=== PATIENT | male | born 1985 | race Caucasian/White ===

== ENCOUNTER 2025-06-16 08:00 | Emergency (ER) | payer SELFPAY ==
[2025-06-16 08:09] VITALS: BP 134/86
--- NOTE | 2025-06-16 09:21 | ED.GENMED ---
History of Present Illness
<ZANDRA Grayson Last Filed: 06/16/25 16:13>
General
Chief Complaint: Cough
Source: patient
Exam Limitations: none
Time Seen by Provider: 06/16/25 08:49
Nursing documentation reviewed up to this point in time: agreed with
History of Present Illness
History of Present Illness:
see MDM
Past History
<ZANDRA Grayson Last Filed: 06/16/25 16:13>
Past History
ED Past Medical History: HTN and Psychiatric (Anxiety, Panic attacks)
ED Past Surgical History: None
Social History
Tobacco: Former smoker
Alcohol: Occasional
Personal:
Living: with family
Review of Systems
<ZANDRA Grayson Last Filed: 06/16/25 16:13>
Review of Systems
Allergies reviewed?: Yes
All Other Systems: Not applicable
Phy Exam
<ZANDRA Grayson Last Filed: 06/16/25 16:13>
Physical Exam
Physical Exam:
GENERAL: Alert , in no apparent distress
EYE: pupils equal and reactive
NECK: Supple
ENT: b/l TM s clear, pharynx erythematous but no tonsillar hypertrophy or exudates
CARDIAC: Regular rate and rhythm, no edema
LUNGS: Crackles left upper lobe, no acute respiratory distress, no wheezes/rales/rhonchi, occ cough
ABDOMEN: Soft, without focal tenderness, no r/g, no cvat, normal bowel sounds
NEUROLOGICAL: Alert and oriented, no focal neuro deficits
SKIN: Warm and dry, skin intact. Mildly pale
MUSCULOSKELETAL: No edema, well perfused.
PSYCH: Normal and appropriate interaction.
Course
<ZANDRA Grayson Last Filed: 06/16/25 16:13>
Orders/Labs/Results
Orders:
Orders
06/16/25 09:14
0.9% Sodium Chloride 1000 ml [Nss] 1,000 ml IV BOLUS
CR Chest - 2 Views Urgent
Comment:
Reason For Exam: hemoptysis,. fever
06/16/25 09:34
Complete Blood Count/With Diff Urgent
Comprehensive Metabolic Panel Urgent
Blood Culture Q30M
RUDI Source: Blood/Venous
Specimen Description:
Blood Culture Q30M
RUDI Source: Blood/Venous
Specimen Description:
06/16/25 10:08
D-Dimer Urgent
Comment: ADD ON
PTT Urgent
Prothrombin Time Urgent
06/16/25 10:17
Add On- LAB Urgent
Tests Added?: d dimer
06/16/25 11:07
CT Chest PE Study Urgent
Comment:
Reason For Exam: hemoptysis, elevated D dimer;
06/16/25 11:38
Sputum Culture [Respiratory Culture/Gram Stain] Urgent
RUDI Source: Sputum
Specimen Description:
Date Specimen was Collected: 06/16/25
Time Specimen was Collected: 11:25
06/16/25 12:58
Legionella Urinary Antigen Urgent
RUDI Source: Urine
Specimen Description:
Strep pneumoniae Antigen Urgent
RUDI Source: Urine
Specimen Description:
06/16/25 13:00
Doxycycline [Vibramycin] 100 mg PO NOW STA
Abnormal Lab Results
06/16/25 06/16/25
09:34 10:08
RBC 4.52 L 10^6/uL
(4.70-6.10)
Absolute Lymphs (auto) 0.7 L 10^3/uL
(1.2-3.4)
Absolute Monos (auto) 0.9 H 10^3/uL
(0.1-0.6)
Lymphocytes % 11.3 L %
(20.5-51.1)
Monocytes % 14.3 H %
(1.7-9.3)
APTT 43.3 H Sec
(23.4-35.0)
D-Dimer 1.01 H ug/mlFEU
(0.00-0.50)
Sodium 133 L mmol/L
(135-145)
06/16/25 09:34
06/16/25 09:34
Vital Signs
Initial and Last Documented VS:
Initial Vital Signs
Temp Pulse Resp BP Pulse Ox
37.1 C 106 16 134/86 95
06/16/25 08:09 06/16/25 08:09 06/16/25 08:09 06/16/25 08:09 06/16/25 08:09
Last Documented Vital Signs
Temp Pulse Resp BP Pulse Ox
37.2 C 95 18 133/102 98
06/16/25 13:43 06/16/25 12:58 06/16/25 12:58 06/16/25 12:58 06/16/25 13:43
<Keven Rosenthal MD - Last Filed: 06/16/25 12:38>
Orders/Labs/Results
Orders:
Orders
06/16/25 09:14
0.9% Sodium Chloride 1000 ml [Nss] 1,000 ml IV BOLUS
CR Chest - 2 Views Urgent
Comment:
Reason For Exam: hemoptysis,. fever
06/16/25 09:34
Complete Blood Count/With Diff Urgent
Comprehensive Metabolic Panel Urgent
Blood Culture Q30M
RUDI Source: Blood/Venous
Specimen Description:
Blood Culture Q30M
RUDI Source: Blood/Venous
Specimen Description:
06/16/25 10:08
D-Dimer Urgent
Comment: ADD ON
PTT Urgent
Prothrombin Time Urgent
06/16/25 10:17
Add On- LAB Urgent
Tests Added?: d dimer
06/16/25 11:07
CT Chest PE Study Urgent
Comment:
Reason For Exam: hemoptysis, elevated D dimer;
06/16/25 11:38
Sputum Culture [Respiratory Culture/Gram Stain] Urgent
RUDI Source: Sputum
Specimen Description:
Date Specimen was Collected: 06/16/25
Time Specimen was Collected: :
06/16/25 12:58
Legionella Urinary Antigen Urgent
RUDI Source: Urine
Specimen Description:
Strep pneumoniae Antigen Urgent
RUDI Source: Urine
Specimen Description:
06/16/25 13:00
Doxycycline [Vibramycin] 100 mg PO NOW STA
Abnormal Lab Results
06/16/25 06/16/25
09:34 10:08
RBC 4.52 L 10^6/uL
(4.70-6.10)
Absolute Lymphs (auto) 0.7 L 10^3/uL
(1.2-3.4)
Absolute Monos (auto) 0.9 H 10^3/uL
(0.1-0.6)
Lymphocytes % 11.3 L %
(20.5-51.1)
Monocytes % 14.3 H %
(1.7-9.3)
APTT 43.3 H Sec
(23.4-35.0)
D-Dimer 1.01 H ug/mlFEU
(0.00-0.50)
Sodium 133 L mmol/L
(135-145)
06/16/25 09:34
06/16/25 09:34
Vital Signs
Initial and Last Documented VS:
Initial Vital Signs
Temp Pulse Resp BP Pulse Ox
37.1 C 106 16 134/86 95
06/16/25 08:09 06/16/25 08:09 06/16/25 08:09 06/16/25 08:09 06/16/25 08:09
Last Documented Vital Signs
Temp Pulse Resp BP Pulse Ox
37.2 C 95 18 133/102 98
06/16/25 13:43 06/16/25 12:58 06/16/25 12:58 06/16/25 12:58 06/16/25 13:43
<Joanie Hayes PA-C - Last Filed: 06/16/25 16:13>
MDM/Problems Addressed
Differential Diagnosis Includes:
see MDM
MDM/Problems Addressed:
Note:
CHIEF COMPLAINT(S)
Persistent fever, cough, and hemoptysis (coughing up blood).
HISTORY OF PRESENT ILLNESS
The patient is a male who presented with symptoms that began approximately 1 week ago. with fatigue, chills and fever to 102, which persisted throughout the week. On 06/12, he sought care at an urgent care facility where influenza and COVID-19 tests
were conducted and returned negative. Despite initial suppositions of a viral infection, the fever remained high by 06/14, prompting a visit to his primary care provider. The primary care physician suspected mild pneumonia despite the absence of a
chest X-ray and prescribed the antibiotic amoxicillin-clavulanate (commonly known as Augmentin). Since Tuesday, the patient has completed five doses of the medication.
Despite antibiotic therapy, the patient reports significant fatigue and a high fever as recently as last night at 10 PM 101, treated with motrin. In addition to fever, persistent symptoms have included a sore throat, dry cough, headache, night
sweats, and recent hemoptysis. Notably, at around 3 AM, the patient coughed up blood-streaked sputum, describing it as mixed yellow sputum turning to brown and then bloody. The volume was estimated to be around eight small amounts consistent with a
combination of mucus and blood.
The patient denies shortness of breath but reports fatigue and significant sweating at night. He also experiences nausea when taking ibuprofen, leading to reduced oral intake. The last fever noted was last night, with the patient feeling slightly
improved today.
The patient traveled in March, flying to [place], but denies any history of blood clots or familial predisposition to them.
SOCIAL HISTORY
The patient reports not consuming much food recently, associated with nausea correlated with antibiotic use and discomfort from [id number] medications.
REVIEW OF SYSTEMS
- General: Persistent fever, fatigue, night sweats.
- Respiratory: Dry cough, recent hemoptysis.
- Gastrointestinal: Nausea.
- Musculoskeletal: Generalized fatigue.
PHYSICAL EXAM
Nursing notes reviewed and vital signs reviewed.
GENERAL: Alert , in no apparent distress
EYE: pupils equal and reactive
NECK: Supple
ENT: b/l TM s clear, pharynx erythematous but no tonsillar hypertrophy or exudates
CARDIAC: Regular rate and rhythm, no edema
LUNGS: Crackles left upper lobe no acute respiratory distress, no wheezes/rhonchi, occ cough
ABDOMEN: Soft, without focal tenderness, no r/g, no cvat, normal bowel sounds
NEUROLOGICAL: Alert and oriented, no focal neuro deficits
SKIN: Warm and dry, skin intact. Mildly pale
MUSCULOSKELETAL: No edema, well perfused.
PSYCH: Normal and appropriate interaction.
PLAN
1. Obtain a chest X-ray to evaluate for pneumonia and assess the severity if present.
2. Consider computed tomography scan of the chest if X-ray findings do not support pneumonia, to rule out alternative causes such as pulmonary embolism.
3. Laboratory tests to include complete blood count to evaluate for possible anemia or infection.
4. Consult with pulmonology if pneumonia or another significant finding is identified on imaging, especially if hemoptysis persists.
5. Consider augmenting antibiotic therapy with another agent if atypical pneumonia is suspected.
6. Monitor closely for any increase in volume or frequency of hemoptysis, which may necessitate hospital admission for intravenous antibiotics and further evaluation.
7. Continued observation and reassessment after initial diagnostic results are reviewed.
DIFFERENTIAL DIAGNOSIS
The Differential Diagnosis includes, in no particular order and is not limited to:
1. Bacterial Pneumonia
2. Viral Pneumonia
3. Tuberculosis
4. Pulmonary Embolism
5. Lung abscess
6. Bronchiectasis
7. Inflammation or irritation from excessive coughing
8. Hemoptysis related to combination of medications and dry cough
9. Fungal Pulmonary Infection
10. Foreign body aspiration causing localized bronchial injury.
06/16/25 - 11:12
The patient has a subtle but visible pneumonia on x-ray in the right lower lobe. A D-dimer test was conducted due to a discussion with the ER attending, and it returned a slightly elevated result. This prompted the decision for a CT scan to better
assess the extent of pneumonia and to rule out a blood clot. The CT scan is especially considered due to potential multilobar involvement, as auscultation suggested possible left upper lobe involvement. The patients oxygen levels remain stable and
blood work is within normal limits. A retail coordinator will be consulted regarding the management of coughing up blood and potential adjustments to antibiotic therapy based on the CT findings.
06/16/25 - 12:59
No blood clots present on the recent scan, but pneumonia was confirmed in the right lower lobe, consistent with chest X-ray findings. Infection is localized, not widespread. i did briefly discuss with community education specialist retail coordinator as curbside to ask about
best plan for patient
recommendation additional coverage for atypicals, cloes f/u and low threshold to return if more volume hemoptysis.
Additional antibiotic, Doxycycline, started today. Patient advised to take on an empty stomach with water unless gastrointestinal discomfort occurs. Close follow-up required with primary care or retail coordinator this week; resolution scans needed in a
few weeks. Given a low threshold for readmission if symptoms worsen, especially hemoptysis or fever. Urine sample requested for Legionella testing, results pending. Advised against using ibuprofen.
<Joanie Hayes PA-C - Last Filed: 06/16/25 16:13>
*Pulse Oximetry
SaO2: 95
Oxygen Mode of Delivery: Room air
Patient hypoxic: no (95)
*Critical Care Note
Total Time (30-74mins, 75-104mins- exclusive of procedures): Not Applicable
ED Attending Note
<Joanie Hayes PA-C - Last Filed: 06/16/25 16:13>
-
Portions of this chart may have been created with voice recognition software.� Occasional wrong word or��sound alike� substitutions may have occurred due to the inherent limitations of voice recognition software.
<Keven Rosenthal MD - Last Filed: 06/16/25 12:38>
ED Attending Note
Patient seen and examined by attending physician: Yes
ED Attending Note:
Patient presents to ED secondary to persistent fever, along with sore throat and intermittent cough over the past 1 week. Patient was seen at urgent care center 5 days ago, where he tested negative for COVID-19 and influenza. Initial diagnosis of
viral illness provided without any medications. When his symptoms persisted, he was evaluated by his primary care physician 2 days ago and was started on Augmentin for presumed bronchitis versus early pneumonia. When he got up this morning,
overall, patient states that he feels as well as he has had since onset of symptoms. However, on multiple occasions, with cough, he has noticed streaks of blood, without chest pain or shortness of breath. Denies vomiting or diarrhea. Patient
reports decreased appetite, but has been eating. Patient reports having travel to [place] and [place] over the past 2 months. Denies leg pain/swelling. Denies back pain. Denies smoking. Denies hx blood clots. Of note, patient's daughter was treated
for 'walking pneumonia' with antibiotics 2 weeks ago. Patient's spouse works as a schoolteacher.
Physical Exam
General: no apparent distress, not acutely ill. afebrile
Head: nc/at. eomi
Neck: supple. no meningeal signs. normal posterior pharynx
Heart: s1/s2 regular rate and rhythm
Lungs: no acute respiratory distress. clear bilaterally
Abdomen: normal bowel sounds. not tender.
Neuro: alert and oriented x 3. no focal neurological deficits
Skin: no rash
Psychiatric: well kept. interactive and cooperative
Extremities: no edema. no calf tenderness.
History and exam consistent with likely acute bronchitis versus viral illness, less likely PE/parenchymal hemorrhage/malignancy. D-dimer noted. As such, will obtain CT angiogram at this time.
CTA chest report reviewed, significant for right lower lobe pneumonia, without evidence of PE.
Discharge Plan
Departure
Patient Disposition: Home (Routine Discharge)
Date of Disposition: 06/16/25
Time of Disposition: 13:00
Patient with high blood pressure during this ER visit?: No
Condition: Fair
Covid-19: Not Applicable
Discharge Problem:
Pneumonia, Hemoptysis
Instructions: Pneumonia, Adult (DC), Coughing up blood
Prescriptions:
New
doxycycline hyclate 100 mg tablet
100 mg PO BID Qty: 14 0RF
No Action
escitalopram oxalate [Lexapro] 20 mg Tablet
20 mg PO DAILY
alprazolam [Xanax] 1 mg Tablet
1 mg PO BID
Referrals:
Augie Jacobs MD [Active, Pulmonary Medicine] - Follow up in 5-7 days
Linda Fernandez CRNP [Family Provider, Internal Medicine] - Follow up in 5-7 days
Activity Restrictions/Additional Instructions:
You have a pneumonia in your right lower lung. You need to call your family doctor and have an appointment this week. You should also call the pulmonology office and make an appointment for follow-up. Tell them that you were in the emergency
department and you have pneumonia and were coughing up blood. If they cannot get you in this week that is when you should see your family doctor. If you can get an appointment for the retail coordinator this week then you would not need to see your
doctor beforehand.
To treat this take the Augmentin as prescribed. You can also use a probiotic for your stomach and continue the Pepcid
Add doxycycline twice a day on an empty stomach with a large glass of water. If this causes some abdominal discomfort you can try taking it with food
This is for 7 days. Have a low threshold for returning to the emergency department
: Especially for new fever, continued coughing up blood or larger episodes of volume of blood, shortness of breath, overall fatigue or lack of strength etc.
Otherwise you should make sure to have imaging in the next month to be sure that your pneumonia cleared up
[employer] that you could do Mucinex daytime during the day and Mucinex DM at nighttime, these are [id number] for your cough
Interventions
Interventions:
*Risk Screen - Suicide Last Done: 06/16/25 08:09
*General Assessment Last Done: 06/16/25 09:23
*Neglect/Abuse Screening Last Done: 06/16/25 08:09
*ED- Fall Risk Assessment Last Done: 06/16/25 09:23
*ED COVID-19 Vaccine History Last Done: 06/16/25 09:23
*ED Influenza Vaccine History Last Done: 06/16/25 09:23
*Nursing Disposition Last Done: 06/16/25 13:43
ED- Pulmonary Assessment Last Done: 06/16/25 09:23
Discharge Date and Time
Discharge Date/Time: 06/16/25 13:44
Print Language: ICELANDIC
[2025-06-16 09:23] VITALS: BMI 26.5
[2025-06-16] MEDS: NSS 1000 IV (09:35)
[2025-06-16 09:45] LABS: Hematocrit 39.5 % (39.0-52.0); Hemoglobin 13.9 g/dL (13.0-18.0); Mean Corp Hgb Conc. 35.2 g/dL (33.0-37.0); Mean Corpuscular Volume 87.4 fL (80.0-94.0); Nucleated Red Blood Cells % 0 % (-); Platelet Count 252 10^3/uL (130-400); Red Cell Dist. Width 11.6 % (11.5-14.5)
[2025-06-16 10:09] LABS: ALT (SGPT) 19 U/L (0-50); AST (SGOT) 24 U/L (17-59); Albumin 4.1 g/dl (3.5-5.0); Alkaline Phosphatase 64 U/L (38-126); Blood Urea Nitrogen 11 mg/dl (9-20); Calcium 9.3 mg/dl (8.4-10.2); Carbon Dioxide 28 mmol/L (22-30); Chloride 98 mmol/L (98-107); Estimated Creatinine Clearance 105 ml/min; Glucose 87 mg/dl (70-99); Potassium 4.3 mmol/L (3.5-5.1); Sodium 133 mmol/L (135-145); Total Protein 6.8 g/dl (6.3-8.2); eGFR > 60.00
[2025-06-16 10:10] VITALS: BP 132/86
[2025-06-16 10:31] LABS: INR 1.01; PT 13.6 Sec (11.4-14.6)
[2025-06-16 10:33] LABS: APTT 43.3 Sec (23.4-35.0)
[2025-06-16 10:38] LABS: D-Dimer 1.01 ug/mlFEU (0.00-0.50)
[2025-06-16 11:00] VITALS: BP 129/84
[2025-06-16 12:58] VITALS: BP 133/102
[2025-06-16] MEDS: VIBRAMYCIN 100 MG PO (13:26)
== END 2025-06-16 13:44 | disposition home or self-care (01) ==
LOC: EMR 08:00
PROVIDERS: Physician Assistant; EMERGENCY PHYSICIAN Emergency Medicine; FAMILY PHYSICIAN Nurse Practitioner Adult Health
DX: J18.9 Pneumonia, unspecified organism (principal); R04.2 Hemoptysis; I10 Essential (primary) hypertension; F41.9 Anxiety disorder, unspecified; F41.0 Panic disorder [episodic paroxysmal anxiety]; Z87.891 Personal history of nicotine dependence
CPT/HCPCS: 99284; 96360; 71046; 71275; 80053; 85025; 85379; 85610; 85730; 87040; 87070; 87205; 87449; 87899; Q9967

== ENCOUNTER 2025-06-17 08:47 | Emergency (ER) | payer SELFPAY ==
[2025-06-17 08:49] VITALS: BP 140/83
[2025-06-17 08:58] VITALS: BMI 26.5
--- NOTE | 2025-06-17 09:49 | ED.GENMED ---
History of Present Illness
<Graciela Joseph MD, Resident - Last Filed: 06/17/25 14:39>
General
Chief Complaint: Breathing Problem
Source: patient
Time Seen by Provider: 06/17/25 09:11
History of Present Illness
History of Present Illness:
39-year-old male with past medical history of anxiety who was here yesterday and diagnosed with severe right lower lobe pneumonia presents to the ER for hemoptysis. Approximately 1 week ago, the patient started to have fevers, chills and persistent
cough. He went to urgent care and tested negative for COVID and flu and was recommended supportive care. His fever continued and he went to his PCP who had concerns for pneumonia based on physical exam despite negative chest x-ray and prescribed
Augmentin. After 5 doses, 2-1/2 days, he noted hemoptysis and came to the ER for evaluation. Due to recent travel history to [place], [place] PE was ordered to rule out PE. CT revealed no PE, however severe right lower lobe pneumonia was diagnosed.
He was recommended to continue Augmentin and started on doxycycline as well with instructions to come back to the ER if he developed hemoptysis. Last night, patient noted a small clot in his phlegm and came into the ER for further evaluation. He
took a picture which revealed one small 1-2mm clot in his phelgm. He continues to have fevers, sweats, cough, pleurisy, nausea and fatigue. Legionella and strep pneumo tested negative, sputum culture and blood culture x2 pending. He does endorse
recent nosebleed.
<Chintan Lipscomb, DO - Last Filed: 06/17/25 11:01>
General
Exam Limitations: none
Nursing documentation reviewed up to this point in time: agreed with
Past History
<Graciela Joseph MD, Resident - Last Filed: 06/17/25 14:39>
Past History
ED Past Medical History: HTN and Psychiatric (Anxiety, Panic attacks)
ED Past Surgical History: None
Social History
Tobacco: Former smoker
Alcohol: Occasional
Personal:
Living: with family
Family History
Family History: Other
Review of Systems
<Graciela Joseph MD, Resident - Last Filed: 06/17/25 14:39>
Review of Systems
Allergies reviewed?: Yes
Constitutional: Reports fever, fatigue, sleep disturbance, night sweats and chills
EENT: Reports runny nose
Respiratory: Reports cough and hemoptysis
Cardiac: Reports other (Pleurisy)
ABD/GI: Reports nausea
: Reports no symptoms
Musculoskeletal: Reports no symptoms
Skin: Reports no symptoms
Neurological: Reports no symptoms
Endocrine: Reports no symptoms
Hematologic/Lymphatic: Reports no symptoms
Phy Exam
<Graciela Joseph MD, Resident - Last Filed: 06/17/25 14:39>
Physical Exam
Physical Exam:
General: Comfortable, nontoxic
Head: Atraumatic
Eyes: PERRLA
ENT: Normal tympanic membranes bilaterally, no pharyngeal erythema, no inflamed nasal turbinates
Cardiac: Regular S1-S2 no murmurs
Respiratory: Right lower lobe crackles, no distress
Abdomen: Soft, nontender, nondistended, normal bowel sounds
Extremities: No peripheral edema
Course
<Graciela Joseph MD, Resident - Last Filed: 06/17/25 14:39>
Vital Signs
Initial and Last Documented VS:
Initial Vital Signs
Temp Pulse Resp BP Pulse Ox
98.5 F 103 18 140/83 94
06/17/25 08:49 06/17/25 08:49 06/17/25 08:49 06/17/25 08:49 06/17/25 08:49
Last Documented Vital Signs
Temp Pulse Resp BP Pulse Ox
98.5 F 70 16 115/75 95
06/17/25 08:49 06/17/25 11:06 06/17/25 11:06 06/17/25 11:06 06/17/25 11:06
<Chintan Lipscomb, DO - Last Filed: 06/17/25 11:01>
Vital Signs
Initial and Last Documented VS:
Initial Vital Signs
Temp Pulse Resp BP Pulse Ox
98.5 F 103 18 140/83 94
06/17/25 08:49 06/17/25 08:49 06/17/25 08:49 06/17/25 08:49 06/17/25 08:49
Last Documented Vital Signs
Temp Pulse Resp BP Pulse Ox
98.5 F 70 16 115/75 95
06/17/25 08:49 06/17/25 11:06 06/17/25 11:06 06/17/25 11:06 06/17/25 11:06
<Graciela Joseph MD, Resident - Last Filed: 06/17/25 14:39>
MDM/Problems Addressed
Differential Diagnosis Includes:
Viral versus bacterial pneumonia, TB, bronchiectasis, nose bleed, fungal infection
MDM/Problems Addressed:
Preliminary blood cultures after 24 hours are negative, preliminary sputum culture reveals many WBC with few mixed bacterial morphotypes. As patient had extensive testing yesterday and is hemodynamically stable satting well on room air, opted not
to do further imaging or blood test today.
The patient's clot is 1-2mm in diameter and given he has had a recent nose bleed it is more likely from that than the pneumonia. He has only been on the doxy for one day. Will discharge with instructions to continue on doxy and augmentin.
<Graciela Joseph MD, Resident - Last Filed: 06/17/25 14:39>
*Pulse Oximetry
SaO2: 94
Oxygen Mode of Delivery: Room air
Patient hypoxic: no
*Critical Care Note
Total Time (30-74mins, 75-104mins- exclusive of procedures): Not Applicable
Data Reviewed
Review of Other/Old Records Reveals: Labs (WBC 06/16/25 6.2) and Radiology Studies (Chest CT 06/16/25 severe R lower lobe pneumonia, no evidence of PE. )
Source: patient, records and family
ED Attending Note
<Graciela Joseph MD, Resident - Last Filed: 06/17/25 14:39>
-
Portions of this chart may have been created with voice recognition software.� Occasional wrong word or��sound alike� substitutions may have occurred due to the inherent limitations of voice recognition software.
<Chintan Lipscomb, - Last Filed: 06/17/25 11:01>
ED Attending Note
Patient seen and examined by attending physician: Yes
I performed a history and physical exam of patient and discussed management with resident, I reviewed resident's note and agree with documented findings and plan of care.: Yes
ED Attending Note:
I reviewed and agree with history and treatment plan by Graciela Joseph MD. My exam revealed 39-year-old male no acute distress
Physical Exam
General: no apparent distress, not acutely ill, afebrile
Neck: supple. no meningeal signs. normal posterior pharynx
Heart: s1/s2 regular rate and rhythm, no murmur. equal radial
pulses.
HEENT: Pupils equal round reactive to light, EOMI, dried blood right nare
Lungs: no acute respiratory distress. Right lower lung rhonchi
Abdomen: normal bowel sounds. not tender. no CVAT
Neuro: alert and oriented. no focal neurological deficits cranial nerves II through XII intact
Skin: no rash
Psychiatric: well kept. interactive and cooperative
Extremities: no edema. no calf tenderness. negative homans. good distal pulses
39-year-old male with episode of hemoptysis, current treatment for right lower lobe pneumonia. He is on day 2 of doxycycline, and day 4 of Augmentin. Patient stable to continue outpatient treatment. Hemoptysis possibly from epistaxis. Follow-up
with primary care. Return precautions given.
Discharge Plan
Departure
Patient Disposition: Home (Routine Discharge)
Date of Disposition: 06/17/25
Time of Disposition: 10:57
Patient with high blood pressure during this ER visit?: Yes
Discharge Problem:
Pneumonia, Hemoptysis
Instructions: Pneumonia in adults
Prescriptions:
No Action
escitalopram oxalate [Lexapro] 20 mg Tablet
20 mg PO DAILY
alprazolam [Xanax] 1 mg Tablet
1 mg PO BID
doxycycline hyclate 100 mg tablet
100 mg PO BID Qty: 14 0RF
Referrals:
Linda Fernandez CRNP [Family Provider, Internal Medicine]
Interventions
Interventions:
*Risk Screen - Suicide Last Done: 06/17/25 08:49
*General Assessment Last Done: 06/17/25 08:51
*Neglect/Abuse Screening Last Done: 06/17/25 08:51
*ED- Fall Risk Assessment Last Done: 06/17/25 08:58
*ED COVID-19 Vaccine History Last Done: 06/17/25 08:58
*ED Influenza Vaccine History Last Done: 06/17/25 08:58
*Nursing Disposition Last Done: 06/17/25 11:06
ED- Cardiac Assessment Last Done: 06/17/25 08:58
ED- Pulmonary Assessment Last Done: 06/17/25 08:58
Discharge Date and Time
Discharge Date/Time: 06/17/25 11:08
Print Language: OCCITAN
[2025-06-17 11:06] VITALS: BP 115/75
== END 2025-06-17 11:08 | disposition home or self-care (01) ==
LOC: EMR 08:47
PROVIDERS: EMERGENCY PHYSICIAN Emergency Medicine; FAMILY PHYSICIAN Nurse Practitioner Adult Health
DX: J18.9 Pneumonia, unspecified organism (principal); R04.2 Hemoptysis; F41.9 Anxiety disorder, unspecified; I10 Essential (primary) hypertension; Z87.891 Personal history of nicotine dependence
CPT/HCPCS: 99283